=== PATIENT | female | born 1990 | race Caucasian/White ===

== ENCOUNTER 2024-08-05 13:47 | Emergency (ER) | payer BC, OTHER, SELFPAY ==
[2024-08-05 13:52] VITALS: BP 103/68
--- NOTE | 2024-08-05 13:58 | ED.GENMED ---
History of Present Illness
<Kenneth Worrell PA-C - Last Filed: 08/05/24 17:29>
General
Chief Complaint: Overdose Intentional
Source: patient
Exam Limitations: none
Time Seen by Provider: 08/05/24 13:50
History of Present Illness
History of Present Illness:
34-year-old female brought here by EMS after well check was called in. There is concern on someone's behalf of the patient drinking too much alcohol and using too much Klonopin. Per paramedics there is a bottle of Klonopin half milligram tablets
filled 3 days ago. There is dorsalis dose to be 30 tablets in the bottle and they are all gone. She admits to drinking wine and vodka as well. Patient denies thoughts of harming self. Patient is able to answer questions
Phy Exam
<Kenneth Worrell PA-C - Last Filed: 08/05/24 17:29>
Physical Exam
Physical Exam:
General: Somnolent female no acute respiratory distress no obvious signs of trauma
HEENT: Normocephalic atraumatic Pupils equal round reactive to light
Heart: Regular rate and rhythm
Lungs: Clear no wheeze
Abdomen is soft nontender nondistended
Extremities: No cyanosis or edema
Neurologic exam: Responsive verbal stimuli no facial asymmetry follows commands no unilateral deficit
Course
<Kenneth Worrell PA-C - Last Filed: 08/05/24 17:29>
Orders/Labs/Results
Orders:
Orders
08/05/24 13:56
0.9% Sodium Chloride 1000 ml [Nss] 1,000 ml IV BOLUS
08/05/24 13:57
Electrocardiogram (*1) Urgent
Reason for Study: Fatigue / Weakness
EKG- Treatment ONCE
08/05/24 14:10
Acetaminophen Urgent
Comment: ADDON
Alcohol Urgent
08/05/24 14:15
Add On- LAB Urgent
Tests Added?: tylenol level
08/05/24 14:53
Drug Screen, Urine [Urine Drug Abuse Screen] Urgent
Date Specimen was Collected: 08/05/24
Time Specimen was Collected: 14:48
Fentanyl, Urine Urgent
08/05/24 15:07
Complete Blood Count/With Diff Urgent
Comprehensive Metabolic Panel Urgent
08/05/24 16:13
Crisis Consult Urgent
Reason for Consult: overdose
Abnormal Lab Results
08/05/24 08/05/24 08/05/24
14:10 14:53 15:07
RBC 4.01 L 10^6/uL
(4.20-5.40)
MPV 12.4 H fL
(7.4-10.4)
Absolute Monos (auto) 0.8 H 10^3/uL
(0.1-0.6)
Lymphocytes % 20.4 L %
(20.5-51.1)
Glucose 47 L* mg/dl
(70-99)
Acetaminophen < 10 L ug/ml
(10-30)
Ur Amphetamines Screen Positive H
(Negative)
POC Glucose
08/05/24
15:56
RBC
MPV
Absolute Monos (auto)
Lymphocytes %
Glucose
Acetaminophen
Ur Amphetamines Screen
POC Glucose 165 H mg/dl
(70-99)
08/05/24 15:07
08/05/24 15:07
Vital Signs
Initial and Last Documented VS:
Initial Vital Signs
Temp Pulse Resp BP Pulse Ox
98.6 F 99 16 103/68 97
08/05/24 13:52 08/05/24 13:52 08/05/24 13:52 08/05/24 13:52 08/05/24 13:52
Last Documented Vital Signs
Temp Pulse Resp BP Pulse Ox
98.6 F 110 17 96/57 95
08/05/24 13:52 08/05/24 16:15 08/05/24 16:15 08/05/24 16:00 08/05/24 15:45
<Federico Chase, DO - Last Filed: 08/05/24 16:30>
Orders/Labs/Results
Orders:
Orders
08/05/24 13:56
0.9% Sodium Chloride 1000 ml [Nss] 1,000 ml IV BOLUS
08/05/24 13:57
Electrocardiogram (*1) Urgent
Reason for Study: Fatigue / Weakness
EKG- Treatment ONCE
08/05/24 14:10
Acetaminophen Urgent
Comment: ADDON
Alcohol Urgent
08/05/24 14:15
Add On- LAB Urgent
Tests Added?: tylenol level
08/05/24 14:53
Drug Screen, Urine [Urine Drug Abuse Screen] Urgent
Date Specimen was Collected: 08/05/24
Time Specimen was Collected: 14:48
Fentanyl, Urine Urgent
08/05/24 15:07
Complete Blood Count/With Diff Urgent
Comprehensive Metabolic Panel Urgent
08/05/24 16:13
Crisis Consult Urgent
Reason for Consult: overdose
Abnormal Lab Results
08/05/24 08/05/24 08/05/24
14:10 14:53 15:07
RBC 4.01 L 10^6/uL
(4.20-5.40)
MPV 12.4 H fL
(7.4-10.4)
Absolute Monos (auto) 0.8 H 10^3/uL
(0.1-0.6)
Lymphocytes % 20.4 L %
(20.5-51.1)
Glucose 47 L* mg/dl
(70-99)
Acetaminophen < 10 L ug/ml
(10-30)
Ur Amphetamines Screen Positive H
(Negative)
POC Glucose
08/05/24
15:56
RBC
MPV
Absolute Monos (auto)
Lymphocytes %
Glucose
Acetaminophen
Ur Amphetamines Screen
POC Glucose 165 H mg/dl
(70-99)
08/05/24 15:07
08/05/24 15:07
Vital Signs
Initial and Last Documented VS:
Initial Vital Signs
Temp Pulse Resp BP Pulse Ox
98.6 F 99 16 103/68 97
08/05/24 13:52 08/05/24 13:52 08/05/24 13:52 08/05/24 13:52 08/05/24 13:52
Last Documented Vital Signs
Temp Pulse Resp BP Pulse Ox
98.6 F 110 17 96/57 95
08/05/24 13:52 08/05/24 16:15 08/05/24 16:15 08/05/24 16:00 08/05/24 15:45
<Kenneth Worrell PA-C - Last Filed: 08/05/24 17:29>
MDM/Problems Addressed
Differential Diagnosis Includes:
Patient came here by EMS for well visit. Someone called in with concern that she was using too much Klonopin and drinking too much alcohol. Patient unable to tell me how much Klonopin she took or alcohol she drank.
On initial exam there is no respiratory distress pupils are reactive to light she is not hypoxic. She is slightly tachycardic. No tremors noted
Check labs drug screen EKG. Fluids ordered.
<Kenneth Worrell PA-C - Last Filed: 08/05/24 17:29>
*Critical Care Note
Total Time (30-74mins, 75-104mins- exclusive of procedures): Not Applicable
<Kenneth Worrell PA-C - Last Filed: 08/05/24 17:29>
Update Note
Update Note:
Patient reexamined, vitals are stable. Expresses her desire to go home. She was seen by crisis. No concerning crisis behalf or imminent danger to self. Patient denies any current thoughts of harming self. She is stable. She has outpatient
resources set up already. No indication for admission or further intervention
ED Attending Note
<Kenneth Worrell PA-C - Last Filed: 08/05/24 17:29>
-
Portions of this chart may have been created with voice recognition software.� Occasional wrong word or��sound alike� substitutions may have occurred due to the inherent limitations of voice recognition software.
<Federico Chase DO - Last Filed: 08/05/24 16:30>
ED Attending Note
Patient seen and examined by attending physician: Yes
I performed the substantive portion of visit, reviewed & personally made and approve the management plan that is documented in note by myself or ROSA.: Yes
ED Attending Note:
I evaluated the patient at bedside. The patient admits to taking alcohol saying that she wanted to sleep as she is undergoing a bad break-up with her boyfriend. She does not want to harm herself. She wanted to sleep. As I was in the room
evaluating her she took a phone call from her father and did not speak to me further. Her UDS is positive for amphetamines but is on Adderall. Of note the UDS was negative for benzos. Alcohol is 156. We have asked crisis to evaluate the patient
as well.
Discharge Plan
Departure
Patient Disposition: Home (Routine Discharge)
Date of Disposition: 08/05/24
Time of Disposition: 17:28
Patient with high blood pressure during this ER visit?: No
Discharge Problem:
Alcohol intoxication
Instructions: Alcohol Use Disorder (DC)
Prescriptions:
No Action
clonazepam 0.5 mg Tablet
0.5 mg PO DAILYPRN PRN (Reason: anxiety)
dextroamphetamine-amphetamine [Adderall XR] 5 mg Capsule,Extended Release 24hr
5 mg PO TID
Referrals:
NONE,* [Family Provider] -
Activity Restrictions/Additional Instructions:
Please return here if needed. Follow-up with your resources as an outpatient
Interventions
Interventions:
*Risk Screen - Suicide Last Done: 08/05/24 13:52
*General Assessment Last Done: 08/05/24 13:52
*Neglect/Abuse Screening Last Done: 08/05/24 13:52
ED- Fall Risk Assessment Last Done: 08/05/24 15:12
*ED COVID-19 Vaccine History Last Done: 08/05/24 15:15
ED- Cardiac Assessment Last Done: 08/05/24 15:12
ED- Neurological Assessment Last Done: 08/05/24 15:12
ED-Psychological Assessment Last Done: 08/05/24 15:12
ED- Pulmonary Assessment Last Done: 08/05/24 15:12
Discharge Date and Time
Print Language: ESTONIAN
[2024-08-05 14:31] LABS: Alcohol 156 mg/dl
[2024-08-05 14:58] LABS: Acetaminophen < 10 ug/ml (10-30)
[2024-08-05 15:00] VITALS: BP 105/58
[2024-08-05] MEDS: NSS 1000 IV (15:09)
[2024-08-05 15:16] LABS: % Basophils 0.5 % (0-2); % Eosinophils 0.7 % (0-6); % Immature Granulocytes 0.3 % (0-0.5); % Lymphocytes 20.4 % (20.5-51.1); % Monocytes 9.1 % (1.7-9.3); Absolute Eosinophils 0.1 10^3/uL (0-0.7); Absolute Lymphocytes 1.8 10^3/uL (1.2-3.4); Absolute Monocytes 0.8 10^3/uL (0.1-0.6); Hemoglobin 12.3 g/dL (12.0-16.0); Mean Corp Hgb Conc. 33.2 g/dL (33.0-37.0); Mean Corpuscular Hgb 30.7 pg (27.0-31.0); Mean Corpuscular Volume 92.3 fL (81.0-99.0); Mean Platelet Volume 12.4 fL (7.4-10.4); Nucleated Red Blood Cells % 0 %; Platelet Count 181 10^3/uL (130-400); Red Blood Cell Count 4.01 10^6/uL (4.20-5.40); White Blood Cell Count 8.7 10^3/uL (4.8-10.8)
[2024-08-05 15:22] LABS: Amphetamines Positive (Negative); Barbiturates Negative (Negative); Benzodiazepines Negative (Negative); Buprenorphine Negative (Negative); Cocaine Negative (Negative); Marijuana Negative (Negative); Methadone Negative (Negative); Methamphetamines Negative (Negative); Opiates Negative (Negative); Phencyclidine Negative (Negative); Tricyclic Antidepressants Negative (Negative)
[2024-08-05 15:51] LABS: ALT (SGPT) 19 U/L (0-35); AST (SGOT) 33 U/L (14-36); Alkaline Phosphatase 57 U/L (38-126); Blood Urea Nitrogen 13 mg/dl (7-17); Calcium 9.1 mg/dl (8.4-10.2); Carbon Dioxide 22 mmol/L (22-30); Chloride 104 mmol/L (98-107); Glucose 47 mg/dl (70-99); Potassium 4.2 mmol/L (3.5-5.1); Sodium 141 mmol/L (135-145); Total Bilirubin 0.7 mg/dl (0.2-1.3); Total Protein 7.6 g/dl (6.3-8.2); eGFR > 60.00
[2024-08-05 15:57] LABS: Glucose - Point of Care 165 mg/dl (70-99)
[2024-08-05 15:59] LABS: Fentanyl, Urine Negative (Negative)
[2024-08-05 16:00] VITALS: BP 96/57
[2024-08-05 17:00] VITALS: BP 104/65
[2024-08-05 17:18] VITALS: BP 99/64
== END 2024-08-05 17:34 | disposition home or self-care (01) ==
LOC: EMR 13:47
PROVIDERS: Physician Assistant; EMERGENCY PHYSICIAN Emergency Medicine
DX: F10.129 Alcohol abuse with intoxication, unspecified (principal); Y90.6 Blood alcohol level of 120-199 mg/100 ml
CPT/HCPCS: 96360; 96361; 99284; 80053; 80143; 80306; 80307; 82077; 82962; 85025; 93005